=== PATIENT | male | born 1995 | race Caucasian/White ===

== ENCOUNTER 2018-07-09 12:03 | Emergency (ER) | payer BC ==
[2018-07-09 12:08] VITALS: BP 161/92
--- NOTE | 2018-07-09 12:13 | ER Report ---
History and Physical Time Seen By MD: 12:13 HPI/ROS CHIEF COMPLAINT: Possible exposure to HIV HISTORY OF PRESENT ILLNESS: 22-year-old male patient presents to emergency room with complaint of possible exposure to HIV. Patient states that over the weekend he had unprotected intercourse with any partner. He states that he did go to [facility] and was directed here as they were not able to treat him. Patient states that due to not knowing his partner and the fact that he didn't use condoms he would like to go ahead and get treated prophylactically for HIV. Patient states that he was tested for HIV a week and a half prior to this event. Patient denies any pain, fevers, chills, nausea, vomiting or diarrhea. Patient states he has not taken any medication. REVIEW OF SYSTEMS: Respiratory: No cough, no dyspnea. Cardiovascular: No chest pain, no palpitations. Gastrointestinal: No vomiting, no abdominal pain. Musculoskeletal: No back pain. Allergies: Coded Allergies: No Known Drug Allergies (Unverified , 07/09/18) Home Meds Active Scripts Dolutegravir Sodium (TIVICAY) 50 Mg Tablet, 1 TAB PO DAILY, #28 TAB Prov:MEL MICHELLEP 07/09/18 Emtricitabine/Tenofovir (TRUVADA 200 MG-300 MG TABLET) 1 Each Tablet, 1 EACH PO DAILY, #28 TAB Prov:[facility] MICHELLE [facility] 07/09/18 Reported Medications Etanercept (ENBREL) 25 Mg Vial, 25 MG SQ, VIAL 07/09/18 Past Medical/Surgical History Patient has a past medical history of psoriatic arthritis, psoriasis, alcohol use. Patient denies any surgical history. Reviewed Nurses Notes: Yes Constitutional Vital Sign - Last 24 Hours 07/09/18 12:08 Temp 97.5 Pulse 107 Resp 16 B/P (MAP) 161/92 Pulse Ox 91 O2 Delivery Room Air Physical Exam General Appearance: The patient is alert, has no immediate need for airway protection and no current signs of toxicity. Respiratory: Chest is non tender, lungs are clear to auscultation. Cardiac: regular rate and rhythm Gastrointestinal: Abdomen is soft and non tender, no masses, bowel sounds normal. Musculoskeletal: Neck: Neck is supple and non tender. Extremities have full range of motion and are non tender. Skin: No rashes or lesions. DIFFERENTIAL DIAGNOSIS: After history and physical exam differential diagnosis was considered for exposure to HIV, exposure to chlamydia, gonorrhea. Medical Decision Making Data Points Laboratory Hematology Test 07/09/18 12:05 Chemistry Test 07/09/18 12:05 ED Course/Re-evaluation ED Course Patient was admitted to and examined, history of physical were obtained. Differential diagnoses were considered. On examination lungs are clear, heart is regular, abdomen soft nontender. Patient concerned about possible sexually transmitted infection, especially HIV we will go ahead and presumptively treat. A urinalysis was collected and will be tested for chlamydia and gonorrhea. We will go ahead and empirically treat both committing gonorrhea with 250 mg of Rocephin and 1 g of azithromycin. With patient having possible exposure to HIV I did discuss repeat testing at 3, 6 and 9 months. We'll also go ahead and treat the patient prophylactically for HIV. We'll do that for the next 30 days. He is to follow-up with his primary care provider next week. He is return to emergency room if condition worsens. Patient verbalized understanding and agreement with plan. Decision to Disposition Date: Jul 09, 2018 Decision to Disposition Time: 12:55 Depart Departure Latest Vital Signs Vital Signs Date Time Temp Pulse Resp B/P (MAP) Pulse Ox O2 Delivery O2 Flow Rate FiO2 07/09/18 12:08 97.5 107 16 161/92 91 Room Air Impression: Primary Impression: High risk homosexual behavior Condition: Improved Disposition: HOME OR SELF-CARE New Scripts Dolutegravir Sodium (TIVICAY) 50 Mg Tablet 1 TAB PO DAILY, #28 TAB Prov: MEL MICHELLE 07/09/18 Emtricitabine/Tenofovir (TRUVADA 200 MG-300 MG TABLET) 1 Each Tablet 1 EACH PO DAILY, #28 TAB Prov: MEL MICHELLE 07/09/18 Patient Instructions: GENERAL ER DISCHARGE INSTRUCTIONS Additional Instructions: I would recommend condom usage 100% of the time. Follow up with your primary care provider or reproductive health to get retesting in 3 months, 6 months and 9 months. Return to the ER with any concerns. Get plenty of rest. Follow up with your primary care provider in the next 1-2 weeks. MEL MICHELLE Jul 09, 2018 12:13
[2018-07-09] MEDS ORDERED: ETAN25KI5 SQ (12:15)
[2018-07-09] MEDS ORDERED: AZITHROMYCIN 250 MG TAB PO ONE (12:40)
[2018-07-09] MEDS ORDERED: cefTRIAXone 250 MG VIAL IM ONE (12:40)
[2018-07-09] MEDS ORDERED: TRUPT PO (12:53)
[2018-07-09] MEDS ORDERED: DOLU50TA PO (12:53)
== END 2018-07-09 13:05 | disposition home or self-care (01) ==
LOC: ER 12:13
DX: Z72.52 High risk homosexual behavior (principal)
CPT/HCPCS: 87491; 87591; 96372; 99283; J0696; Q0144

== ENCOUNTER → 2018-08-02 | Outpatient (CLI) | payer BC ==
[~2018-08-02] MED LIST: DOLU50TA PO; ETAN25KI5 SQ; TRUPT PO
[2018-08-02 15:42] LABS: PLATELET COUNT, AUTOMATED 147 K/uL (150-450)
== END ==
LOC: LAB 15:22
PROVIDERS: ATTEND Nurse Practitioner Psychiatric/Mental Health
DX: Z79.899 Other long term (current) drug therapy (principal)
CPT/HCPCS: 36415; 82040; 82247; 82248; 84075; 84155; 84450; 84460; 85025